=== PATIENT | male | born 1960 | race Caucasian/White ===

== ENCOUNTER 2024-06-09 13:45 | Emergency (ER) | payer BC ==
[2024-06-09] MEDS ORDERED: Ondansetron PF 4 MG/2 ML Vial ONE (13:51)
[2024-06-09] MEDS ORDERED: diphenhydrAMINE 50 MG/ML VIAL ONE (13:59)
[2024-06-09] MEDS ORDERED: Metoclopramide HCl 10 MG (2 mL) VIAL ONE (13:59)
[2024-06-09 14:30] LABS: #Basophils 0.06 10x3/uL (0.0-0.2); #Eosinophils 0.35 10x3/uL (0.0-0.5); #Monocytes 0.65 10x3/uL (0.0-1.1); #Neutrophils 3.74 10x3/uL (1.5-8.4); %Basophils 0.7 % (0.0-2.0); %Eosinophils 3.9 % (0.0-6.0); %Lymphocytes 46.6 % (18.0-47.0); %Monocytes 7.2 % (0.0-10.0); %Neutrophils 41.5 % (40.0-75.0); Hematocrit 41.9 % (38.8-50.0); Hemoglobin 14.7 g/dL (13.5-17.5); Mean Corpuscular HGB CONC 35.1 g/dL (32.0-36.0); Mean Corpuscular Hemoglobin 29.3 pg (27.0-33.0); Mean Corpuscular Volume 83.5 fL (81.2-95.1); Mean Platelet Volume 10.4 fL (7.4-10.4); Platelet Count 323 10x3/uL (150-450); RBC Distribution Width 12.2 % (11.5-14.5); Red Blood Cell (RBC) Count 5.02 10x6/uL (4.32-5.72)
[2024-06-09 14:36] LABS: ALT (SGPT) 66 U/L (8-55); AST (SGOT) 33 U/L (5-34); Albumin 4.4 g/dL (3.4-4.8); Alkaline Phosphatase 61 U/L (40-110); Anion Gap 18 mmol/L (10-20); BUN (Urea Nitrogen) 12 mg/dL (8.4-25.7); Bilirubin, Total 0.9 mg/dL (0.2-1.2); CK (CPK) 114 U/L (30-200); Calc. Creatinine Clearance 0 mL/min (70-130); Carbon Dioxide 21 mmol/L (23-31); Chloride 103 mmol/L (98-107); Estimated GFR 96; Globulin 3.2 g/dL (2.4-3.5); Glucose 170 mg/dL (80-115); Lipase 74 U/L (8-78); Potassium 3.5 mmol/L (3.5-5.1); Protein, Total 7.6 g/dL (5.8-8.1); Sodium 138 mmol/L (136-145)
[2024-06-09] MEDS ORDERED: Magnesium 2 GM/50 ML BAG (IN WATER) ONE (15:49)
[2024-06-09 16:00] LABS: Bilirubin Neg (Negative); Blood, Urine Negative (Negative); Clarity Clear (Clear); Glucose, Urine (Dipstick) 100 mg/dL (Negative); Ketone, Urine 15 mg/dL (Negative); Leukocyte Negative (Negative); Nitrite Negative (Negative); Protein, Urine (Dipstick) Negative (Neg-Trace); Urobilinogen Normal mg/dL (Less than 2); pH, Urine 6.5 (5.0-9.0)
[2024-06-09 16:15] LABS: Bacteria/HPF Rare-Few HPF (None Seen); CAUTI Indications for Culture Pelvic or flank pain; RBC/HPF None Seen HPF (0-3); Squamous Epithelial None Seen HPF (0-3); WBC/HPF 0-3 HPF (0-3)
[2024-06-09 16:16] LABS: Urine Culture Reflex No No
[2024-06-09] MEDS ORDERED: Dexamethasone 10 MG/ML VIAL ONE (16:23)
== END 2024-06-09 16:31 | disposition home or self-care (01) ==
LOC: CSHERS 13:45
DX: R11.2 Nausea with vomiting, unspecified (principal); R51.9 Headache, unspecified; E11.9 Type 2 diabetes mellitus without complications; Z90.49 Acquired absence of other specified parts of digestive tract; Z87.19 Personal history of other diseases of the digestive system
CPT/HCPCS: 70450; 70496; 70498; 80053; 81001; 82550; 83690; 85025; 93005; 96374; 96375; J1100; J1200; J2405; J2765; J3475